=== PATIENT | male | born 1985 | race Two or more races ===

== ENCOUNTER 2023-06-13 09:22 | Emergency (ER) | payer OTHER ==
[2023-06-13 09:30] VITALS: BP 116/81; PULSE 64; RESP 16; TEMP 98.3; BMI 32.6
[2023-06-13] MEDS ORDERED: ACETAMINOPHEN 500 MG TABLET (FP) PO ONE (11:05)
[2023-06-13] MEDS ORDERED: KETOROLAC TROMETHAMINE 30 MG/1 ML VIAL IM ONE (11:05)
[2023-06-13] MEDS ORDERED: KETOROLAC TROMETHAMINE 30 MG/1 ML VIAL ONE (11:10)
[2023-06-13] MEDS ORDERED: ACETAMINOPHEN 500 MG TABLET (FP) ONE (11:10)
== END 2023-06-13 12:40 | disposition home or self-care (01) ==
LOC: JERFT 09:22
PROC: 3E0233Z Introduction of Anti-inflammatory into Muscle, Percutaneous Approach (ICD-10-PCS; principal; 2023-06-13)
DX: M79.601 Pain in right arm (principal); R20.0 Anesthesia of skin; M25.531 Pain in right wrist
CPT/HCPCS: 73110-TC-RT-FY; 99284-25